=== PATIENT | female | born 1965 | race Caucasian/White ===

== ENCOUNTER 2017-01-27 21:39 | Emergency (ER) | payer SELFPAY ==
[~2017-01-27] VITALS: Ht 160 cm; Wt 90.0 kg
[2017-01-27 21:47] VITALS: Ht 160 cm; Wt 90.0 kg
== END 2017-01-28 00:05 | disposition left against medical advice (07) ==
LOC: FTE 21:39 → E/R 01-28 00:05
DX: Z53.21 Procedure and treatment not carried out due to patient leaving prior to being seen by health care provider (principal)